=== PATIENT | male | born 1975 | race Caucasian/White ===

== ENCOUNTER 2018-03-08 08:59 | Emergency (ER) | payer SELFPAY ==
[2018-03-08 09:00] VITALS: BP 119/77; PULSE 96; RESP 17; TEMP 36.6; O2SAT 99; BMI 29.2
--- NOTE | 2018-03-08 09:07 | CT_ITS ---
STUDY: CT ABDOMEN AND PELVIS WITHOUT CONTRAST REASON FOR EXAM: Male, 42 years old. Left flank pain RADIATION DOSAGE (If Supplied By Facility): CTDIvol = ( 7.55 ) mGy, DLP = ( 384.67 ) mGycm TECHNIQUE: Transaxial images were obtained from the dome of the diaphragm to the symphysis pubis without oral contrast, and without intravenous contrast. Sagittal and coronal images were reconstructed. Individualized dose optimization techniques were used for this CT. COMPARISON: None. FINDINGS: The visualized lung bases are unremarkable. The visualized portions of the heart are within normal limits. Normal liver. Normal gallbladder and extrahepatic biliary system. Normal spleen. Normal pancreas. Normal bilateral adrenal glands. Normal right kidney. Normal left kidney. No definite renal or ureteral stones are seen. There is no hydronephrosis on either side. Evaluation of the GI tract is limited by absence of oral contrast. Cannot exclude stomach wall thickening. No dilated loops of bowel or evidence for obstruction. Cannot exclude segmental thickening of the rowland of the small or large bowel. Cannot exclude enteritis or colitis. Moderate diffuse fecal retention. Appendix within normal limits. Normal abdominal aorta. Normal inferior vena cava. Normal retroperitoneum. Normal urinary bladder. There are bilateral small fat-containing inguinal hernias. Normal osseous structures. CT/Abdomen/Pelvis without Cont IMPRESSION: There is no definite acute abnormality. Electronically Signed: Saud Nielsen MD at 10:45 EST , Service support ,
--- NOTE | 2018-03-08 09:11 | ED.VISSUMM ---
- ER Visit Summary Date of Service: 03/08/18 Chief Complaint: Left flank pain History of Present Illness: The patient is a 42 M presents to the emergency department left flank pain. Patient states that he was siphoning antifreeze out of a radiator on a tractor because they cannot get the radiator off. He states that he accidentally swallowed a few ounces of antifreeze. This happened about a week ago. He states that he began to have some pain in his left flank that acutely worsened over the past 2 days. He states it waxes and wanes. Today, he noted some blood in his urine. He was nauseated with one episode of vomiting. He states his never had pain like this before. The patient is otherwise healthy. He has had prior knee surgery, but no abdominal surgery. He takes no daily medications. He denies any history of kidney stone. Physical Examination: Vital signs reviewed General: Well-nourished, well-developed Head: Normocephalic, atraumatic Eyes: Pupils equal and reactive, extraocular muscles intact Neck, supple, no lymphadenopathy Heart: Regular rate and rhythm Respiratory: No distress, clear bilaterally Abdomen: Soft, nontender, nondistended, no peritoneal signs Back: Mildly tender in the left CVA area Extremities: Nontender, no edema, no cords Skin: Normal color no rash Neuro: Alert and oriented, no focal or lateralizing deficits Test Results: [] Emergency Department Course and Treatment: The patient presents with left-sided flank pain. His symptoms do seem consistent with kidney stone. IV was established. He was given analgesics and anti-inflammatories. He did have improvement of his symptoms. His urine shows no evidence of infection. His kidney function is normal. CT does not show any definitive stone, hydronephrosis, or other intra-abdominal process. I am unsure if he passed a stone or if this is muscular. The patient will be treated with anti-inflammatories and antispasmodics. He does have bilateral inguinal hernias containing fat. He will be given outpatient surgery referral as these will be painful from time to time. The patient is discharged home. Treatment Plan: [] Disposition: Discharge Impression: 1. Left flank pain This note was generated with [employer] dictation software. It may contain incorrect words, spelling, and punctuation that were not noted in review of the chart prior to signing ED Disposition - Plan for ED Patient: Disposition: Home or Assisted Living Chief Complaint: Flank Pain Instructions: ED Stone Renal Passed Prescriptions: RX: Naproxen [Naprosyn] 500 mg PO BID PRN #20 tab Cyclobenzaprine [Flexeril] 10 mg PO TID PRN #20 tab PRN Reason: Muscle Spasm Referrals: Blossom Kemp MD [STAFF PHYSICIAN] - (Called to follow-up about your hernia)
[2018-03-08] MEDS: 0.9% Normal Saline 1,000 ML 250 ML IV (09:20)
[2018-03-08] MEDS: Morphine 4 MG/ML Syringe IV (09:20)
[2018-03-08] MEDS: Ketorolac 30 MG/ML Syringe IV (09:20)
[2018-03-08] MEDS: Ondansetron 4 MG/2 ML Vial IV (09:21)
[2018-03-08 09:30] LABS: Absolute Lymphocyte Count 2.08 X10^3/ul (0.83-4.51); Absolute Neutrophil Count 4.4 X10^3/uL (2.0-7.7); Basophil# 0.03 X10^3/uL; Basophil% 0.4 % (0-1); Eosinophil# 0.06 X10^3/uL; Eosinophils% 0.9 % (0-5); Hematocrit 47.6 % (40-54); Lymphocyte # 2.08 X10^3/ul (4.0); Lymphocyte % 29.6 % (19-41); Mean Corp Hgb Conc 33.6 g/gl (32-36); Mean Corpuscular Hgb 31.8 pg (27.0-32.0); Mean Corpuscular Volume 94.6 fL (80-94); Mean Platelet Vol. 9.4 fl (6.2-12.0); Monocyte# 0.47 X10^3/uL; Monocyte% 6.7 % (0-10); Neutrophil # 4.37 X10^3/uL (2.7-7.7); Neutrophil % 62.3 % (47-70); Platelet Count 257 K/mm3 (150-450); RBC Distribution Width CV 12.4 % (11.6-14.6); RBC Distribution Width SD 42.6 fl (35.1-43.9); Red Blood Count 5.03 M/mm3 (4.6-6.2)
[2018-03-08 09:33] LABS: Anion Gap 6 (5-15); BUN 18 mg/dL (7-18); BUN/Creat Ratio 15.8 RATIO (10-20); Calcium,Total 8.4 mg/dL (8.5-10.1); Chloride 108 mmol/L (98-107); Creatinine, Serum 1.14 mg/dL (0.70-1.30); EST Glomerular Filtration Rate 75 mL/min (>60); Est Glom Filt Rate - Afr Amer 91 mL/min (>60); Estimated Creatinine Clearance 76.95 ml/min; Glucose 128 mg/dL (74-106); POSITIVE COUNT NO; POSITIVE DIFFERENTIAL NO; POSITIVE MORPHOLOGY NO; Sodium Level 141 mmol/L (136-145)
[2018-03-08 10:02] VITALS: PULSE 86; RESP 16; TEMP 36.8; O2SAT 96
[2018-03-08 11:00] VITALS: PULSE 83; RESP 16; TEMP 36.9; O2SAT 98
[2018-03-08 11:15] LABS: Bacteria 0 SEEN /hpf (None Seen); Mucous, Urine 0 SEEN /hpf (<or=2+)
[2018-03-08 11:16] LABS: Color, Urine Yellow (Yellow); Glucose, Dipstick Normal (Normal); Ketone-Dipstick Negative (Negative); Leukocyte Esterase-Dipstick Negative /ul (Negative); Nitrite-Dipstick Negative (Negative); Occult Blood-Urine Negative /ul (Negative); Protein-Dipstick Negative (Negative); Urine Bilirubin Dipstick Negative (Negative); Urine Clarity Clear (Clear); Urine Urobilinogen Normal (Normal)
[2018-03-08 11:23] LABS: Red Blood Cells-Urine 0-5 SEEN /hpf (0-5); Squamous Epithelial Cells - UA 0-5 SEEN /hpf (0-5); White Blood Cells 0-5 SEEN /hpf (0-5)
[2018-03-08 11:57] VITALS: PULSE 90; RESP 16; O2SAT 99
== END 2018-03-08 11:58 | disposition home or self-care (01) ==
PROVIDERS: Emergency Provider Emergency Medicine
DX: R10.9 Unspecified abdominal pain (principal); K40.20 Bilateral inguinal hernia, without obstruction or gangrene, not specified as recurrent; Z72.0 Tobacco use
CPT/HCPCS: 74176; 80048; 81001; 85025; 96361; 96374; 96375; 99283; J7030; A4216; J2405

== ENCOUNTER 2018-04-30 09:44 | Day surgery (SDC) | payer MEDICAID, SELFPAY ==
[2018-03-12 14:35] VITALS: BMI 29.2
[2018-04-21 14:05] VITALS: BMI 29.2
[2018-04-30] VITALS (7 sets, daily range): BP systolic 85–110; BP diastolic 56–76; PULSE 58–73; RESP 16; TEMP 36.1–37.4; O2SAT 94–99; BMI 29.1
--- NOTE | 2018-04-30 09:54 | EKG12_ITS ---
Test Reason : PRE OP Blood Pressure : / mmHG Vent. Rate : 066 BPM Atrial Rate : 066 BPM P-R Int : 164 ms QRS Dur : 086 ms QT Int : 364 ms P-R-T Axes : 072 076 048 degrees QTc Int : 381 ms Normal sinus rhythm Normal ECG No previous ECGs available Confirmed by JUWAN LUJAN, DL ([id number]), state editor AMERICO JAIME ([id number] on 05/04/2018 5:37:29 PM Referred By: Blossom Kemp Confirmed By:DL ECHEVERRIA MD
[2018-04-30 10:43] LABS: Hematocrit 48.7 % (40-54); Hemoglobin 16.4 g/dl (13.0-16.5); Mean Corp Hgb Conc 33.7 g/gl (32-36); Mean Corpuscular Hgb 32.1 pg (27.0-32.0); Mean Corpuscular Volume 95.3 fL (80-94); Mean Platelet Vol. 9.7 fl (6.2-12.0); Platelet Count 267 K/mm3 (150-450); RBC Distribution Width CV 12.4 % (11.6-14.6); RBC Distribution Width SD 42.9 fl (35.1-43.9); Red Blood Count 5.11 M/mm3 (4.6-6.2); Scan Indicated on CBC? Y/N NO; White Blood Count 7.5 K/mm3 (4.4-11.0)
--- NOTE | 2018-04-30 13:00 | HERN_PTH ---
PATIENT: CHAR BOWENS [place] [facility] [id number] AGE/SX: 43/M ROOM: RE04/30/[address]: Dr. Blossom Kemp MD : [id number] BED: DIS: 04/30/2018 SPEC #: [id number] RECD: 04/30/18 15:16 STATUS: MARLON JOVANI #: [id number] DANNA: 04/30/18 13:[address]: Blossom Kemp DEPT: SURGICAL PATHOLOGY RECD BY: Ayse Sims ENTERED: 05/01/18 09:35 SP TYPE: Hernia OTHR DR: Pastora Primary Care Phys Tissues: HERNIA Procedures: Surgery Specimen Level II HEADER OPERATION: Hernia, inguinal w/ mesh, open PRE-OP DIAGNOSIS: Right inguinal hernia TISSUE SUBMITTED: Hernia sac MICROSCOPIC DIAGNOSIS Hernia sac: A piece of mesothelial lined fibroadipose and fibroconnective tissue, consistent with hernia sac. SJ:nasir 05/04/18 MICROSCOPIC DESCRIPTION Slides are reviewed. GROSS DESCRIPTION Received in fixative is one container labeled with the patient's name and designated hernia sac. The specimen consists of a glistening fragment of red-jiménez soft tissue measuring 4.5 x 1 x 1 cm. The specimen is sectioned and totally submitted in one cassette. / AM:nasir 05/01/18 TC:5 CPT: 54581
[2018-04-30] MEDS: Bupivacaine Mpf 0.5% 30 ML VIAL (14:20)
--- NOTE | 2018-04-30 14:22 | PCM.OPRPT ---
Report of Operation Date of Procedure: 04/30/18 Pre-Operative Diagnosis: Right inguinal hernia, reducible Post-Operative Diagnosis: Same Surgery/Procedure Performed:: Right inguinal hernia repair with mesh operating room technologist: Annalisa Hart Type of Anesthesia:: General/Supplemental Anesthesiologist: Phoenix Canseco Special Medications: Clindamycin 600 mg IV x1 Specimen's removed: Hernia sac Estimated Blood Loss (mL): < 10 cc Fluids Replaced: 1700 cc Description of Procedure: Indications: This is a 43-year-old male who developed right inguinal hernia. Right inguinal hernia repair with mesh was elected. Description procedure: The patient was taken to the operating room. A timeout was completed verifying correct patient, procedure, site, positioning, and special equipment prior to beginning procedure. General anesthesia was induced. The right groin was prepped and draped in usual sterile fashion. An incision was marked in the natural skin crease and planned in the near the pubic tubercle. A field block was produced by raising skin wheals along the proposed incision in a skin wound was raised about 1 cm medial to the anterior superior iliac spine using 0.5% Marcaine for a total of 10 mL. Skin incision was made with the knife and deepened through the Yasmine and Camper's fascia with electrocautery until the aponeurosis of the external oblique was a identified. This was cleaned and the external ring exposed. Hemostasis was achieved in the wound. An incision was made in the midpoint of the external oblique aponeurosis in the direction of its fibers. The ilioinguinal nerve was identified and protected throughout the dissection. Flaps of the external oblique were developed cephalad and inferiorly. The cord was identified. It was gently dissected free at the pubic tubercle and encircled with a Joe drain. Attention was directed to the anterior medial aspect of the cord where an indirect hernia sac was identified. The sac was carefully dissected free from the cord down to the level of the internal ring. The vas on the testicular vessels were identified and protected from harm. The sac was opened and contents reduced. A finger was passed into the peritoneal cavity and the floor of the inguinal canal was assessed and found to be adequate. The femoral canal was palpated and no hernia identified. The sac was twisted and suture ligated with a 2-0 silk. Redundant sac was excised and submitted to pathology. The stump of the sac was checked for hemostasis and allowed to retract into the abdomen. Attention then turned to the floor of the canal which appeared to be weakened without a well-defined defect or sac. A Bard keyhole mesh was cut to the appropriate size. Beginning at the pubic tubercle, the mesh was sutured to the inguinal ligament inferiorly and the conjoined tendon superiorly using interrupted sutures of 2-0 PDS sutures. Care was taken to assure the mesh was placed in the last fashion to avoid excess tension and no neurovascular structures were caught in the repair. Laterally the tails of mesh were crossed and the internal ring recreated, allowing for passage of the surgeon's 5th fingertip. Hemostasis was again checked. The Joe drain was removed. Area was irrigated with saline. External oblique aponeurosis was closed running suture of 3-0 Vicryl, taking care not to catch the ilioinguinal nerve in the suture line. Yasmine's fascia was closed with interrupted sutures of 3-0 Vicryl. Skin was closed running subcuticular suture of 4-0 Monocryl with Steri-Strips gauze and Tegaderm. The testes was gently pulled down to the anatomical position the scrotum. Patient tolerated the procedure well and sent to the postanesthesia care in stable condition. Grafts/Implants Used: Bard mesh preshaped lot [id number] - Complications none - Admit VTE Documentation VTE Present on Admission: Yes VTE Mechan Device Prophylaxis: SCD's
--- NOTE | 2018-04-30 14:28 | PCM.DC.HER ---
Discharge Diet: No Restrictions Discharge Activity: May not drive while taking narcotic pain medications. May shower in (days): 1 Lifting Restrictions: No lifting greater than 20 pounds for 4 weeks Call your doctor if your incision/area has: Continuous Slow Oozing, Sudden Increased Bleeding, Increased Pain/ Swelling, Increased Redness, Foul Smelling Discharge, Swelling at the incision site Call your doctor if you observe: Fever of 101 or Higher Remove Dressing in (days):: 1 - Steri-Strips to stand for 7-10 days if they do not follow-up in 10 days okay to remove Additional Instructions: Wear scrotal support for the first few days including boxer briefs or regular briefs and avoid only wearing boxers, bruising in the scrotum is not uncommon Okay to take ibuprofen 400-600 mg PO q6hr PRN along with the Percocet. Avoid Tylenol since there is already Tylenol in the Percocet. Take all pain meds with food. Percocet can cause constipation recommend taking daily stool softener (i.e. Colace/docusate) while taking the pain meds. Recommend starting some MiraLAX 1-2 days if no bowel movement. If still no bowel movement the following day recommend taking magnesium citrate half the bottle and waiting 4-6 hours if still no results take the other half the bottle. Allergies/Adverse Reactions: Allergies Penicillins [PCN] Allergy (Verified 04/30/18 10:06) Shortness of breath Medications to take at Discharge Cyclobenzaprine [Flexeril] 10 mg PO TID PRN #20 tab 03/08/18 Naproxen [Naprosyn] 500 mg PO BID PRN #20 tab 03/08/18 Oxycodone HCl/Acetaminophen [Percocet 5/325] 1 - 2 tablet PO Q6H PRN PRN 5 Days #30 tablet 04/30/18 The following prescriptions were given: Oxycodone HCl/Acetaminophen [Percocet 5/325] 1 - 2 tablet PO Q6H PRN PRN 5 Days #30 tablet PRN Reason: Pain Orders to be completed after discharge: CBC-Complete Blood Cnt No Diff Time Frame: 04/30/18, Location: Laboratory Primary Care Physician: Care Physician,No Primary [Primary Care Provider] - Test Results: Test results from this visit will be discussed in further detail at your follow-up appointment, if applicable. Please Follow Up With: Blossom Kemp MD - At 5:00 on the weekends about [phone] with any concerns When: Call the office for follow-up appointment in 2 weeks. Proposed Discharge Date: 04/30/18
--- NOTE | 2018-04-30 14:31 | DCINST_ITS ---
Discharge Diet: No Restrictions Discharge Activity: May not drive while taking narcotic pain medications. May shower in (days): 1 Lifting Restrictions: No lifting greater than 20 pounds for 4 weeks Call your doctor if your incision/area has: Continuous Slow Oozing, Sudden Increased Bleeding, Increased Pain/ Swelling, Increased Redness, Foul Smelling Discharge, Swelling at the incision site Call your doctor if you observe: Fever of 101 or Higher Remove Dressing in (days):: 1 - Steri-Strips to stand for 7-10 days if they do not follow-up in 10 days okay to remove Additional Instructions: Wear scrotal support for the first few days including boxer briefs or regular briefs and avoid only wearing boxers, bruising in the scrotum is not uncommon Okay to take ibuprofen 400-600 mg PO q6hr PRN along with the Percocet. Avoid Tylenol since there is already Tylenol in the Percocet. Take all pain meds with food. Percocet can cause constipation recommend taking daily stool softener (i.e. Colace/docusate) while taking the pain meds. Recommend starting some MiraLAX 1-2 days if no bowel movement. If still no bowel movement the following day recommend taking magnesium citrate half the bottle and waiting 4-6 hours if still no results take the other half the bottle. Allergies/Adverse Reactions: Allergies Penicillins [PCN] Allergy (Verified 04/30/18 10:06) Shortness of breath Medications to take at Discharge Cyclobenzaprine [Flexeril] 10 mg PO TID PRN #20 tab 03/08/18 Naproxen [Naprosyn] 500 mg PO BID PRN #20 tab 03/08/18 Oxycodone HCl/Acetaminophen [Percocet 5/325] 1 - 2 tablet PO Q6H PRN PRN 5 Days #30 tablet 04/30/18 The following prescriptions were given: Oxycodone HCl/Acetaminophen [Percocet 5/325] 1 - 2 tablet PO Q6H PRN PRN 5 Days #30 tablet PRN Reason: Pain Orders to be completed after discharge: CBC-Complete Blood Cnt No Diff Time Frame: 04/30/18, Location: Laboratory Primary Care Physician: Care Physician,No Primary [Primary Care Provider] - Test Results: Test results from this visit will be discussed in further detail at your follow- up appointment, if applicable. Please Follow Up With: Blossom Kemp MD - At 5:00 on the weekends about [phone] with any concerns When: Call the office for follow-up appointment in 2 weeks. Proposed Discharge Date: 04/30/18
== END 2018-04-30 16:14 | disposition home or self-care (01) ==
LOC: SDC 09:45 → AC 09:52
PROVIDERS: Anesthesiology; Referring Provider Surgery; Visit Provider Surgery
PROC: (CPT 49505; principal; 2018-04-30 12:45)
DX: K40.90 Unilateral inguinal hernia, without obstruction or gangrene, not specified as recurrent (principal); F17.200 Nicotine dependence, unspecified, uncomplicated; Z79.899 Other long term (current) drug therapy
CPT/HCPCS: 49505; 85027; 88302; 93005; J7120; C1781; J2405

== ENCOUNTER 2020-05-15 15:04 | Emergency (ER) | payer SELFPAY ==
[2018-04-30 10:10] VITALS: BMI 29.1
[2020-05-15 15:06] VITALS: BP 155/93; PULSE 78; RESP 17; TEMP 35.9; O2SAT 98; BMI 28.1
--- NOTE | 2020-05-15 15:24 | ED.DCSUM_ITS ---
History of Present Illness Chief Complaint: GI Bleed Informant: Patient Onset: Month(s) Narrative: 45-year-old male presents with painless bright red blood per rectum with bowel movements. Patient denies any rectal or abdominal pain. He states that he sits and strains for upwards of an hour to an hour and a half with bowel movements. The bowel movements are hard. Patient states that a couple years ago he had a inguinal hernia surgery with Dr. Kemp. He states that after that he had developed some hard stool and had some bright red blood per rectum and developed some external hemorrhoids. He tells me that got better but over the past 8 to 9 months he started having bright red blood with each bowel movement again. He states that it has gotten worse in the past 1 to 2 months. He denies any passing out. No lightheadedness. No palpitations. He no history of diverticulosis. He is never had colonoscopy. Dr. Kemp Past Medical History - Allergies and Home Meds Allergies/Adverse Reactions: Allergies Penicillins [PCN] Allergy (Verified 05/15/20 15:06) Shortness of breath Primary Care Physician: Blossom Kemp MD [STAFF PHYSICIAN] - (Call today to arrange surgical follow- up) Past Medical History: None Surgical History: herniorrhaphy Smoking Status: Current every day smoker Drugs: None Review of Systems General: Denies: Chills, Fever, Sweats Eyes: Denies: Visual changes - bilaterally, Diplopia ENT: Denies: Rhinorrhea, Sore throat Cardiovascular: Denies: Chest pain, Palpitations Respiratory: Denies: Dyspnea, Cough, Dyspnea on exertion Gastrointestinal: Reports: Constipation, Hematochezia. Denies: Abdominal pain, Nausea, Vomiting, Diarrhea, Melena Genitourinary: Denies: Dysuria, Hematuria, Frequency Musculoskeletal: Denies: Back pain, Extremity Pain Skin: Denies: Rash, Wounds Neurological: Denies: Headache, Weakness, Numbness Physical Exam Vital Signs/Narrative: Vital Signs Temp Pulse Resp BP Pulse Ox 05/15/20 15:06 96.6 F L 78 17 155/93 H 98 Inital Vital Signs reviewed: Yes General: Well nourished, Well developed, No Acute Distress Head: Normocephalic, Atraumatic Eyes: Perrl, EOMI ENT: Moist mucous membranes, No rhinorrhea Neck: Supple, Nontender Cardiovascular: Regular rate, Regular rhythm, No murmurs Respiratory: No distress, CTA bilaterally, Chest nontender Abdomen: Soft, Nontender, Nondistended, Normal bowel sounds Rectal: Nontender, - - There appears to be some mild external hemorrhoid present. No bright red blood per rectum. Does have tissues in his underwear that has some mild red blood Back: Nontender, Normal Inspection Extremities: Nontender, No edema Skin: Normal color, No rash Neurological: Alert, Oriented x3, Cranial nerves II-XII grossly intact, Normal Strength, Normal Sensation Psychological: Normal affect, Normal Mood Diagnostic/Tx/Re-eval - Medical Decision Making H&H was obtained this was normal.. I believe this is most likely going to be internal hemorrhoidal bleeding. He appears otherwise hemodynamically stable. I will place him on Proctofoam HC as well as twice daily Colace. He will be referred to Dr. Kemp for surgical evaluation. ED Disposition - Plan for ED Patient: Disposition: Home or Assisted Living Diagnosis: Lower GI bleed, Hemorrhoids Instructions: ED Hemorrhoids, ED Lower GI Bleeding (Stable) Prescriptions: Docusate Sodium [Colace] 100 mg PO BID #40 cap Transmission Status: Received by [facility]/pharmacy #[id number] Hydrocortisone/Pramoxine [Proctofoam-Hc Foam] 1 applicatio RC BID #1 canister Transmission Status: Received by [facility]/pharmacy #[id number] Referrals: Blossom Kemp MD [STAFF PHYSICIAN] - (Call today to arrange surgical follow- up)
[2020-05-15 15:58] LABS: Hemoglobin 14.5 g/dL (13.0-16.5)
== END 2020-05-15 16:14 | disposition home or self-care (01) ==
LOC: ED 15:39
PROVIDERS: Emergency Provider Emergency Medicine
DX: K92.2 Gastrointestinal hemorrhage, unspecified (principal); K64.9 Unspecified hemorrhoids; F17.200 Nicotine dependence, unspecified, uncomplicated
CPT/HCPCS: 85014; 85018; 99282